=== PATIENT | male | born 1965 | race Caucasian/White ===

== ENCOUNTER 2022-07-16 09:03 | Outpatient (REF) | payer OTHER, SELFPAY ==
--- NOTE | ~2022-07-16 | MR_ITS ---
MRI OF THE BRAIN WITH AND WITHOUT IV CONTRAST INDICATION: Dysarthria. Hypertension. COMPARISON: None available. TECHNIQUE: Multiplanar multisequence MR imaging of the brain was obtained without and following the administration of 7.5 mL of Gadavist without complication. 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 Chronic left-sided wallerian degeneration. There is no hydrocephalus, extra-axial surface collection, or herniation. The major flow voids at the skull base are preserved. There is no acute infarct on diffusion-weighted imaging. There is no intracranial hemorrhage on the gradient recalled echo acquisition. Chronic hemosiderin staining within the basal ganglia bilaterally. The midline structures are normal. The cerebellar tonsils are normally positioned. The cerebellum and brainstem are normal. The craniocervical junction is normal. Osseous marrow signal intensity is homogenous. The visualized soft tissues are unremarkable. MR/MR head/brain wo/w con IMPRESSION: - No acute intracranial findings. No acute infarcts. No pathologic enhancement intracranially. 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 Chronic left-sided wallerian degeneration. There are some T2 signal changes involving the anterior temporal pole white matter and external capsules which could be seen in the setting of CADASIL which can be clinically correlated. - Chronic hemosiderin staining within the basal ganglia bilaterally.
== END 2022-07-16 09:04 | disposition home or self-care (01) ==
LOC: HO.MRI 09:03
PROVIDERS: Visit Provider Psychiatry & Neurology Neurology
DX: R47.1 Dysarthria and anarthria (principal); I10 Essential (primary) hypertension
CPT/HCPCS: 70553; A9585

== ENCOUNTER 2022-10-02 13:31 | Outpatient (REF) | payer OTHER, SELFPAY ==
--- NOTE | ~2022-10-02 | CT_ITS ---
EXAMINATION: CT CHEST SCREENING CLINICAL INFORMATION: Current smoker with 45 pack year history COMPARISON: None. TECHNIQUE: Multidetector volumetric CT imaging of the chest is performed without contrast using low dose technique. Additional 2D coronal and sagittal reformatted images and axial 3D maximum intensity projection (MIP) images are generated on the CT workstation. This CT examination was performed using dose optimization techniques as appropriate, variously including the following: *Automated exposure control *Adjustment of mA and/or kV according to patient size (this includes techniques or standardized protocols for targeted exams where dose is matched to indication/reason for exam; i.e. extremities or head) *Use of iterative reconstruction technique DLP: 47 mGy-cm FINDINGS: LUNGS: Mild upper lobe predominance centrilobular emphysema. Diffuse moderate bronchial thickening. Scattered endobronchial secretions and mucoid impactionprimarily within the right lower lobe segmental bronchioles. There are dependent centrilobular groundglass opacities in bilateral lower lobes, with a couple more discrete groundglass nodules measuring up to 6 mm. There are no nodules that meet criteria for short follow-up. Single calcified granuloma. MEDIASTINUM: Mild cardiomegaly. Great vessels normal caliber. No mediastinal or hilar lymphadenopathy. Calcified mediastinal and bilateral hilar lymph nodes. CORONARY ARTERY CALCIFICATION: Present PLEURA: There is no pleural effusion. No pleural mass or thickening. AXILLA: No lymphadenopathy. UPPER ABDOMEN: Unremarkable OSSEOUS STRUCTURES: No acute or suspicious osseous abnormalities. CT/CT lung screening IMPRESSION: * No evidence of pulmonary malignancy. * Mild emphysema findings compatible with bronchitis and/or asthma. * Secretions present within the right lower lobe segmental bronchioles in association with bilateral dependent lower lobe centrilobular groundglass opacities suggest mild aspiration bronchiolitis. ASSESSMENT: Lung-RADS category 2: Benign RECOMMENDATION: Routine annual low-dose CT screening in 12 months.
== END 2022-10-02 13:32 | disposition home or self-care (01) ==
LOC: HO.CT 13:31
PROVIDERS: PCP Internal Medicine; Visit Provider Physician Assistant Medical
DX: Z12.2 Encounter for screening for malignant neoplasm of respiratory organs (principal); F17.210 Nicotine dependence, cigarettes, uncomplicated
CPT/HCPCS: 71271; G0296

== ENCOUNTER 2022-10-27 09:21 | Outpatient (REF) | payer OTHER, SELFPAY ==
[2022-10-27 11:19] LABS: Vitamin B12 626 pg/mL (200-900)
== END 2022-10-27 09:22 | disposition home or self-care (01) ==
LOC: HO.LAB 09:21
PROVIDERS: PCP Internal Medicine; Visit Provider Psychiatry & Neurology Neurology
DX: G93.40 Encephalopathy, unspecified (principal)
CPT/HCPCS: 36415; 82607

== ENCOUNTER 2023-07-20 10:41 | Outpatient (AMB) | payer OTHER, SELFPAY ==
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
[2023-07-20 10:48] VITALS: BP 136/86; PULSE 94; BMI 24.4
== END 2023-07-20 11:14 | disposition home or self-care (01) ==
PROVIDERS: PCP Internal Medicine; Referring Provider Internal Medicine; Visit Provider Surgery
DX: R91.1 Solitary pulmonary nodule (principal)
CPT/HCPCS: 99204

== ENCOUNTER → 2023-07-20 10:41 | Outpatient (BNVA) | payer OTHER, SELFPAY | PROVIDERS: PCP Internal Medicine; Referring Provider Internal Medicine; Visit Provider Surgery | DX: R91.1 Solitary pulmonary nodule (principal) | CPT/HCPCS: 99202 ==

== ENCOUNTER 2023-08-27 13:20 | Outpatient (REF) | payer OTHER, SELFPAY ==
--- NOTE | ~2023-08-27 | CT_ITS ---
EXAMINATION: CT CHEST WITHOUT CONTRAST CLINICAL INFORMATION: Solitary pulmonary nodule. COMPARISON: 10/02/2022 TECHNIQUE: Multidetector volumetric CT imaging of the chest was done. Axial MIP volume rendering provided. Sagittal and coronal reformatted images were obtained. This CT examination was performed using dose optimization techniques as appropriate, variously including the following: *Automated exposure control *Adjustment of mA and/or kV according to patient size (this includes techniques or standardized protocols for targeted exams where dose is matched to indication/reason for exam; i.e. extremities or head) *Use of iterative reconstruction technique DLP: 145 mGy-cm FINDINGS: LUNGS: Motion artifact technically degrades image quality. Mild centrilobular emphysema. There are peribronchial groundglass opacities in the left lower lobe. New 6 mm nodule superior segment left lower lobe on image 89 of series 11. Central airways are patent. MEDIASTINUM: No bulky axillary, hilar or mediastinal lymphadenopathy. Great vessels are of normal caliber. Possible left ventricular enlargement. No pericardial effusion. CORONARY ARTERY CALCIFICATION: Mild. PLEURA: There is no pleural effusion. No pleural mass or thickening. CHEST WALL: Gynecomastia. UPPER ABDOMEN: Status post cholecystectomy. OSSEOUS STRUCTURES: No destructive bone lesions. CT/CT chest wo con - High Res IMPRESSION: New 6 mm nodule superior segment left lower lobe. New peribronchial groundglass opacities in the left lower lobe. This may represent an acute infectious or inflammatory process. Advise clinical correlation and short interval follow-up imaging.
== END 2023-08-27 13:21 | disposition home or self-care (01) ==
LOC: HO.CT 13:20
PROVIDERS: PCP Internal Medicine; Visit Provider Surgery
DX: R91.1 Solitary pulmonary nodule (principal)
CPT/HCPCS: 71250

== ENCOUNTER 2023-09-06 09:41 | Outpatient (AMB) | payer OTHER, SELFPAY ==
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
[2023-09-06 10:08] VITALS: BP 139/85; PULSE 91; BMI 23.6
== END 2023-09-06 10:30 | disposition home or self-care (01) ==
PROVIDERS: PCP Internal Medicine; Visit Provider Surgery
DX: R91.1 Solitary pulmonary nodule (principal)
CPT/HCPCS: 99203

== ENCOUNTER → 2023-09-06 09:41 | Outpatient (BNVA) | payer OTHER, SELFPAY | PROVIDERS: PCP Internal Medicine; Visit Provider Surgery | DX: R91.1 Solitary pulmonary nodule (principal) | CPT/HCPCS: 99202 ==

== ENCOUNTER 2024-12-26 09:18 | Outpatient (REF) | payer OTHER, SELFPAY ==
--- OUTSIDE RECORDS SUMMARY | 2024-12-26 09:53 | XMS_ITS | Clinical Summary ---
Author Organization [address] [place] [address] [place] [id number] Phone Care Team Providers Care Plastic Straightening Roll Operator Name Role Phone Alejandro Trujillo Primary Care Provide r Allergies No known active allergies Medications buprenorphine-n aloxone (SUBOXONE) 8-2 mg per SL film Place 1 film under the tongue 2 (two) times a day for 21 days. Max Daily Amount: 2 films 42 each 5 01/03/20 25 Active buprenorphine-n aloxone (SUBOXONE) 8-2 mg per SL film Place 1 film under the tongue 2 (two) times a day for 21 days. Max Daily Amount: 2 films 42 each 5 12/13/19 25 Discontinu ed(Reorder ) Encounters Date Type Department Care Team Description 12/12/2024 1:30 PM EDT [facility] [address] [facility] [place] [phone] Piter Bridges MD Drug dependence, in remission (CMS/HCC V24, CMS/HCC V28) (Primary Dx) 11/21/2024 1:15 PM EDT [facility] [address] [facility] [place] [phone] Piter Bridges MD Substance use disorder (Primary Dx) 10/31/2024 1:30 PM EDT Office Visit [facility] - [facility] [address] [phone] Piter Bridges MD Drug dependence, in remission (CMS/HCC V24, CMS/HCC V28) (Primary Dx) 09/28/2024 2:00 PM EST Office Visit [facility] - [facility] [address] [place] [phone] Piter Bridges MD Drug dependence, in remission (CMS/HCC V24, CMS/HCC V28) (Primary Dx) from Last 3 Months Surgical History Surgery Date Site/Laterality Comments CHOLECYSTECTOMY PROCEDURE: [place] CHOLECYSTECTOMY Medical History Medical History Date Comments Human immunodeficiency virus (HIV) disease (CMS/HCC V24, CMS/HCC V28) 02/23/2007 DX:Human immunodefi ciency virus (HIV) disease (HCC); COMMENT: Per pt, 12 year Hx, had toxoplasmosis, PCP infection, CD # [phone], viral load undetectable. Followed By Dr. Das in [place] Calculus of kidney 02/23/2007 DX:Calculus o f kidney; COMMENT: followed by urology, per pt, he had surgery for kidney stone before. Anxiety disorder in conditio ns classified elsewhere 02/23/2007 DX:Anxiety disorder in condi tions classified elsewhere; COMMENT: Pt was once followed [place] Other convulsions 02/23/2007 DX:Other convu lsions; COMMENT: likely from toxoplasmosis, last episode over 5 months ago, followed by neurologist at [place] Hyperlipidemia 02/20/2016 DX:Hyperlipidemi a Erectile dysfunction 02/20/2016 DX:Erectile dysfunction Anxiety 02/23/2007 DX:Anxiety; COMM ENT: Pt was once followed [place] MANISHA update Depression 02/20/2016 DX:Depression Chronic hepatitis C (CMS/HCC V24, CMS/HCC V28) 02/20/2016 DX:Chronic hepatitis C (HCC) Opioid dependence (CMS/HCC V 24, CMS/HCC V28) 02/20/2016 DX:Opioid dependence (HCC); COMMENT: suboxone Family History Medical History Relation Name Comments Cirrhosis Father alcohol Diabetes Mother Relation Name Status Comments Father Mother Social History Tobacco Use Types Packs/Day Years Used Date Smoking Tobacco: Every Day Cigarettes Tobacco Cessation:Ready to Q uit: Not Asked; Counseling Given: Not Answered Alcohol Use Standard Drinks/Week Comments Not Asked 0 (1 standard drink = 0.6 oz pur e alcohol) Sex and Gender Information Value Date Recorded Sex Assigned at Not on file Legal Sex Male 1:56 PM EST Gender Identity Not on file Sexual Orientation Not on file Obstetrics History Last Filed Vital Signs Vital Sign Reading Time Taken Comments Blood Pressure 120/78 12/12/2024 1:41 PM EDT Pulse 132 12/12/2024 1:41 PM EDT Temperature 36.7 ??C (98 ??F) 11/21/2024 1:05 PM EDT Respiratory Rate - - Oxygen Saturation 95% 12/12/2024 1:41 PM EDT Inhaled Oxygen Concentration - - Weight - - Height - - Body Mass Index - - Plan of Treatment Upcoming Encounters Date Type Department Care Team (Late st Contact Info) Description 01/02/2025 1:30 PM EDT Office Visit [facility] - [facility] [address] [place] [phone] Piter Bridges MD [address] [place] [address] Health Maintenance Due Date Last Done Comments Meningococcal ACWY Vaccine (1 - Risk 2-dose series) 1965 MMR Vaccines (1 of 2 - Risk 2-dose series) 1981 Hepatitis A Vaccines (1 of 2 - Risk 2-dose series) 1982 Cholesterol Screening (Lipid Panel) 07/01/2022 Colorectal Cancer Screening: Colonoscopy 07/01/2022 Depression Screening 07/01/2022 Hepatitis C Screening 07/01/2022 Medicare Annual Wellness Visit 07/01/2022 Social Influencers of Health Screening 07/01/2022 Hypertension/CHF/CAD Annual BMP Blood Test 07/17/2022 Zoster Vaccines (2 of 2) 08/13/2022 06/18/2022 Pneumococcal Vaccine: 50+ Years (3 of 3 - PCV) 04/14/2023 04/14/2022, 10/15/2011, 05/17/2008 Pneumococcal Vaccine: Pediatrics (0 to 5 Years) and At-Risk Patients (6 to 64 Years) (3 of 3 - PCV) 04/14/2023 04/14/2022, 10/15/2011, 05/17/2008 Hepatitis B Vaccines (1 of 3 - Risk 3-dose series) 2023 RSV Immunization Adult Patients (1 - Risk 60-74 years 1-dose series) 2023 COVID-19 Vaccine ( - season) 2024 07/08/2021, 12/04/2020, 11/06/2020 Influenza Vaccine (Season Ended) 2025 07/14/2022, 04/14/2022, 05/20/2021, Additional history exists DTaP,Tdap,and Td Vaccines (3 - Td or Tdap) 06/18/2032 06/18/2022, 12/20/2009 HIB Vaccines Aged Out No longer eligi ble based on patient's age to complete this topic HPV Vaccines Aged Out No longer eligi ble based on patient's age to complete this topic IPV Vaccines Aged Out No longer eligi ble based on patient's age to complete this topic Meningococcal B Vaccine Aged Out No l onger eligible based on patient's age to complete this topic RSV Immunization Patients Under 20 months Aged Out No longer eligible based on patient's age to complete this topic Varicella Vaccines Aged Out No longer eligible based on patient's age to complete this topic Procedures Procedure Name Priority Date/Time Associated Diagnosis Comments POC URINE DRUG SCREEN Routine 12/12/2024 1:59 PM EDT Drug dependence, in remission ([facility] V24, [facility] V28) POC URINE DRUG SCREEN Routine 11/21/2024 1:18 PM EDT Substance use disorder POC URINE DRUG SCREEN Routine 10/31/2024 1:30 PM EDT Drug dependence, in remission ([facility] V24, [facility] V28) from Last 3 Months Results * (ABNORMAL) POC Urine Drug Screen (12/12/2024 1:59 PM EDT) Only the most recent of3 resultswithin the time period is included. Amphetamine Screen, Ur POC Negative Negative Barbituates, Ur POC Negative Negative Benzodiazepines, Ur POC Negative Negative Buprenorphine, Ur POC Positive(A) Negative Cocaine, Ur POC Negative Negative MDMA Ur POC Negative Negative Methamphetamine Screen, Ur POC Negative Negative Methadone, Ur POC Negative Negative Opiate Scrn, Ur POC Negative Negative Oxycodone Scrn, Ur POC Negative Negative PCP, Ur POC Negative Negative THC, Ur POC Negative Negative Temperature, Ur POC 96 Urine Urine specimen obtained by clean catch procedure / Unknown 12/12/2024 1:59 PM EDT Piter Bridges MD POINT OF CARE TEST ENTER/EDIT OR DERABLES Edited Result - Final from Last 3 Months Insurance [employer] MED[employer] Member Subscriber Plan / Payer (Ef fective 2022-Present) Name:Bryan Giovani Relation to Subscriber:Self Name:Bryan Giovani Payer ID:[id number] Group ID:[id number] Type:Not on file Address: [place] [address] [place] [phone] Care Teams Plastic Straightening Roll Operator Relationship Specialty Start Date End Date Alejandro Trujillo NPMara: [id number] [address] [place], [place] PCP - General 08/24/22
[2024-12-26 14:33] LABS: MANUAL DIFF FLAG NO
[2024-12-26 14:37] LABS: Basophils Absolute Auto 0.1 X10*3/uL (0.0-0.2); Basophils Percent Auto 1.3 % (0-2); Eosinophils Absolute Auto 0.1 X10*3/uL (0.0-0.4); Eosinophils Percent Auto 2.2 % (0-4); Hematocrit 43.1 % (42.0-52.0); Hemoglobin 13.9 g/dl (14.0-18.0); Imm Gran Abs Auto 0.02 X10*3/uL (0.00-0.03); Imm Gran Pct Auto 0.4 % (0.0-0.4); Lymphocytes Absolute Auto 1.6 X10*3/uL (1.2-4.9); Lymphocytes Percent Auto 28.7 % (20-40); Mean Corpuscular HGB Conc 32.3 g/dl (31.0-36.0); Mean Corpuscular Hemoglobin 27.1 pg (27.0-33.0); Mean Platelet Volume 10.1 fL (9.4-12.4); Monocytes Absolute Auto 0.5 X10*3/uL (0.1-1.2); Monocytes Percent Auto 8.9 % (2-11); Neutrophils Absolute Auto 3.2 x10*3/uL (2.0-8.3); Neutrophils Percent Auto 58.5 % (45-73); Platelet Count 218 X10*3/uL (160-400); Red Blood Count 5.13 X10*6/uL (4.60-5.80); Red Cell Distribution Width 14.1 % (11.0-16.0); White Blood Count 5.5 X10*3/uL (4.8-10.8)
[2024-12-26 14:46] LABS: Estimated Average Glucose 114 mg/dL; Hemoglobin A1C 139.6433 umol/L; Hemoglobin A1c % 5.6 % (<6.0); Total Hemoglobin (HGBA1C) 3672.2455 umol/L
[2024-12-26 15:00] LABS: Alanine Aminotransferase 23 U/L (0-40); Alkaline Phosphatase 122 U/L (39-117); Anion Gap 10 (12-20); Aspartate Amino Transferase 34 U/L (5-37); Bilirubin Total 0.6 mg/dL (0.0-1.0); Blood Urea Nitrogen 19 mg/dL (9-16); Calcium 8.9 mg/dL (8.4-10.2); Carbon Dioxide 31 mmol/L (22-29); Chloride 105 mmol/L (96-108); Cholesterol 162 mg/dL (<200); Estimated Glomerular Filt Rate > 60; Glucose Random 88 mg/dL (60-115); HDL Cholesterol 42 mg/dL (>40); LDL Cholesterol Calculated 100 mg/dL (<100); Sodium 142 mmol/L (135-145); Total Protein 7.1 g/dL (6.5-8.0); Triglycerides 100 mg/dL (<150)
[2024-12-26 15:08] LABS: TSH reflex Free T4 1.18 uIU/mL (0.32-4.0)
== END 2024-12-26 09:19 | disposition home or self-care (01) ==
LOC: HO.CHCLDS 09:18
PROVIDERS: Visit Provider Internal Medicine
DX: I10 Essential (primary) hypertension (principal); Z12.5 Encounter for screening for malignant neoplasm of prostate; Z13.1 Encounter for screening for diabetes mellitus
CPT/HCPCS: 36415; 80053; 80061; 83036; 84153; 84443; 85025